=== PATIENT | female | born 1990 | race Caucasian/White ===

== ENCOUNTER 2020-01-10 08:03 | Outpatient (CLI) | payer BC ==
--- NOTE | 2020-01-10 08:45 | BD ---
EXAM: Bone densitometry using DEXA HISTORY: 29 yo female. Screening for osteoporosis FINDINGS: L1--bone mineral density 0.890 g/sq cm; T score -0.9 ; Z score -0.9 L2--bone mineral density 0.955 g/sq cm; T score -0.7 ; Z score -0.7 L3--bone mineral density 0.951 g/sq cm; T score -1.2 ; Z score -1.2 L4--bone mineral density 0.930 g/sq cm; T score -1.2 ; Z score -1.2 Total L1-L4--bone mineral density 0.932 g/sq cm; T score -1.0 ; Z score -1.0 Left femoral neck--bone mineral density0.692; T score -1.4 ; Z score -1.3 Total proximal left femur--bone mineral density 0.867; T score -0.6 ; Z score -0.6 The 10 year fracture risk for a major osteoporotic fracture is 2% and for a hip fracture is 0.2%. IMPRESSION: Normal BMD
== END 2020-01-10 08:04 | disposition home or self-care (01) ==
LOC: BICMAMMO 08:03
PROVIDERS: ATTEND Internal Medicine Gastroenterology
DX: K90.0 Celiac disease (principal); R19.7 Diarrhea, unspecified
CPT/HCPCS: 77080